=== PATIENT | female | born 1950 | race Caucasian/White ===

== ENCOUNTER 2020-08-20 18:12 | Emergency (ER) | payer MEDICARE, SELFPAY ==
[2020-08-20 18:13] VITALS: BP 104/54; PULSE 93; RESP 18; TEMP 36.7; O2SAT 93; BMI 30.2
[2020-08-20 18:34] VITALS: BP 125/67; PULSE 92; RESP 19; O2SAT 97
--- NOTE | 2020-08-20 18:34 | CTR_ITS ---
PROCEDURE INFORMATION: Exam: CT Head Without Contrast Exam date and time: 08/20/2020 6:34 PM Age: 69 years old Clinical indication: Pain; Dizziness and visual disturbance; Headache not specified; Additional info: Dizziness/blurred vision/frontal FUENTES x yesterday TECHNIQUE: Imaging protocol: Computed tomography of the head without contrast. Radiation optimization: All CT scans at this facility use at least one of these dose optimization techniques: automated exposure control; mA and/or kV adjustment per patient size (includes targeted exams where dose is matched to clinical indication); or iterative reconstruction. COMPARISON: No relevant prior studies available. RADIATION DOSE METRICS: Total DLP (mGy-cm): 775.27 FINDINGS: Brain: There is moderate cerebral atrophy. Negative for intracranial hemorrhage. No intracranial mass. Negative for acute brain ischemia. Medrano matter and white matter interfaces are preserved. Focal low-attenuation area posteromedial left parietal lobe most likely representing gliosis in the subcortical white matter. No mass effect on the brain. Focal area of encephalomalacia of the inferomedial left cerebellum. Cerebral ventricles: No ventriculomegaly. Paranasal sinuses: Visualized sinuses are unremarkable. No fluid levels. Mastoid air cells: Visualized mastoid air cells are well aerated. Vasculature: Intracranial atherosclerosis. Bones/joints: Unremarkable. No acute fracture. Soft tissues: Unremarkable. CT/CT head wo con* [id number] IMPRESSION: 1. Negative for acute intracranial abnormality. 2. Suspect areas of gliosis related to prior ischemia in the left parietal lobe and the left cerebellum. Radiation Dose CTDIVOL = (mGy): DLP = 775.27 (mGy-cm)
--- NOTE | 2020-08-20 18:34 | XRR_ITS ---
PROCEDURE INFORMATION: Exam: XR Chest Exam date and time: 08/20/2020 6:34 PM Age: 69 years old Clinical indication: Pain; Chest pressure; Additional info: Cp TECHNIQUE: Imaging protocol: XR of the chest. Views: 1 view. COMPARISON: No relevant prior studies available. FINDINGS: Lungs: Unremarkable. No consolidation. Pleural spaces: Unremarkable. No pleural effusion. No pneumothorax. Heart/Mediastinum: Unremarkable. No cardiomegaly. Bones/joints: Unremarkable. XR/XR chest 1V portable [id number] IMPRESSION: No acute findings.
--- NOTE | 2020-08-20 18:35 | ECG_ITS ---
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 Measurements Intervals [place] Rate: 90 P: 66 SC: 172 QRS: -36 QRSD: 74 T: 55 QT: 370 QTc: 454 Interpretive Statements SINUS RHYTHM MARKED LEFT AXIS DEVIATION [QRS AXIS < -30] No previous ECG available for comparison Electronically Signed On 08-21-2020 22:28:08 CDT by Destinee Blanco M.D. [id number]
[2020-08-20 19:30] VITALS: BP 144/70; PULSE 86; RESP 17; O2SAT 98
[2020-08-20 19:39] LABS: Basophils # 0.1 10^3/uL (0.0-0.1); Basophils % 0.3 %; Eosinophils # 0.1 10^3/uL (0.0-0.8); Eosinophils % 0.7 %; Hematocrit 45.6 % (37.0-47.0); Hemoglobin 14.7 g/dL (11.5-15.3); Lymphocytes % 11.8 %; Mean Corpuscular HGB Conc 32.2 g/dL (30.0-36.0); Mean Corpuscular Hemoglobin 29.6 pg (28.0-34.0); Mean Corpuscular Volume 91.8 fL (81-99); Mean Platelet Volume 9.5 fL (7.4-10.4); Neutrophils # 13.44 10^3/uL (1.8-7.7); Neutrophils % 80.8 %; Nucleated Red Blood Cells % 0 %; Platelet Count 167 10^3/cmm (130-400); Red Blood Count 4.97 10^6/uL (4.1-5.3); Red Cell Distribution Width 13.1 % (12.1-15.1); White Blood Count 16.6 10^3/uL (4.0-10.0)
[2020-08-20 19:49] LABS: Add Urine Microscopic? NO; Charge for UA Resulting for Rev
[2020-08-20 19:57] LABS: Troponin(5th) Baseline 11 ng/L (0-10)
[2020-08-20 19:59] LABS: Alanine Aminotransferase 16 U/L (0-33); Albumin Level 4.1 g/dL (3.5-5.2); Alkaline Phosphatase 131 IU/L (35-105); Anion Gap 16.8 (5-19); Aspartate Amino Transferase 19 U/L (0-32); Blood Urea Nitrogen 19 mg/dL (8-23); C Reactive Protein 4.7 mg/L (0.0-4.9); Calcium 8.6 mg/dL (8.5-10.5); Carbon Dioxide 23 mmol/L (22-29); Chloride 104 mmol/L (98-107); Creatinine Clr Calc Pharmacy 67.8443; Globulin 2.2 g/dL (1.3-4.6); Glomerular Filtration Rate 71.1 mL/min (90-130); Glucose 322 mg/dL (65-115); Lipase 30 U/L (13-60); Osmolality Calculated 303 mOsm/kg (285-295); Potassium 4.8 mmol/L (3.5-5.1); Sodium 139 mmol/L (136-145); Total Bilirubin 0.4 mg/dL (0.15-1.2); Total Protein 6.3 g/dL (6.6-8.7)
[2020-08-20 20:02] LABS: Bilirubin Urine Neg (Negative); Blood Urine Neg (Negative); Glucose Urine UA 4+ (Normal); Ketones Urine Negative (Negative); Leukocyte Esterase Urine Negative (Negative); Nitrate Urine Negative (Negative); Protein Urine Neg (Negative); Specific Gravity, Urine 1.005 (1.005-1.030); Urine Appearance Clear (CLEAR); Urine Color Yellow (Yellow); Urobilinogen Urine Norm (Negative); pH Urine 5 (5-7)
[2020-08-20 20:07] VITALS: BP 125/51; PULSE 82; RESP 18; O2SAT 98
--- NOTE | 2020-08-20 20:35 | ECG_ITS ---
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 Measurements Intervals [place] Rate: 84 P: 66 HI: 180 QRS: -18 QRSD: 77 T: 51 QT: 376 QTc: 444 Interpretive Statements SINUS RHYTHM Compared to ECG 08/20/2020 18:41:47 Left-axis deviation no longer present Electronically Signed On 08-21-2020 22:37:08 CDT by Destinee Blanco M.D. [id number]
--- NOTE | 2020-08-20 20:51 | ED_ITS ---
HPI - Nausea/Vomiting/Diarrhea General: Chief complaint: Nausea/Vomiting/Diarrhea Stated complaint: SHOULDER/ NECK AND BILATERAL JAW PAIN Time Seen by Provider: 08/20/20 18:22 Source: patient Mode of arrival: EMS Limitations: no limitations History of Present Illness: HPI Narrative: Patient is a 69-year-old female with a history of diabetes mellitus hypertension, who presents to the emergency department with multiple complaints. She states that her symptoms started yesterday after she made some hamburgers. She had several episodes of nausea, vomiting, diarrhea. She states that her symptoms continued today and she noticed that when she looked up she had dizziness. She also has some neck pain on either side. Initially today she felt much better and went out with her to have lunch just to walk around, however after lunch she started to feel bad again. Because of all these she had an ambulance called and she was brought to the emergency department to be evaluated. She has no prior cardiac history. MD elicited complaint: nausea, vomiting and diarrhea Onset (ago): day(s) (1) Description of vomiting: food contents Description of diarrhea: watery Associated nausea: Yes Associated abdominal pain: No Exacerbating factors: none Relieving factors: none Context: possible food poisoning Associated symtoms: Reports dizziness and nausea; Denies altered mental status, anxiety, bloating, change in vision, chest pain, cough, diaphoresis, decreased urine output, dysuria, epistaxis, fatigue, fecal incontinence, fevers/chills, headache(s), anorexia, malaise, myalgias, numbness, palpitations, rash, short of breath, syncope, tenesmus, tinnitus or weakness Review of Systems General: Reports: 10 or more systems reviewed and unremarkable except in HPI and below Const: Denies: fatigue, malaise or diaphoresis Eyes: Denies: change in vision ENMT: Denies: tinnitus or epistaxis Card: Denies: chest pain, palpitations or syncope GI: Reports: nausea; Denies: bloating or fecal incontinence : Denies: dysuria Neuro: Reports: dizziness; Denies: headache(s) Psych: Denies: anxiety Physical Exam Const: COMMON NORMALS: no acute distress, average body habitus, patient oriented x3, no limitations, healthy appearing, alert and well nourished EXAM LIMITATIONS: no altered mental status HENMT: COMMON NORMALS: normocephalic, atraumatic and moist oral mucous membranes HEAD & SCALP: normocephalic and atraumatic Neck/C-Spine: COMMON NORMALS: full ROM, supple, no meningeal signs, no JVD and No carotid bruits Chest: COMMONS NORMALS: normal inspection of the chest and normal palpation of entire chest wall Resp: COMMON NORMALS: normal respiratory effort, No retractions, No use of accessory muscles, clear to auscultation bilaterally and percussion normal AUSCULTATION: clear to auscultation bilaterally PERCUSSION: percussion normal Cardio: COMMON NORMALS: no JVD, regular rate, regular rhythm, S1 normal heart sound present, S2 normal heart sound present, No gallops present (Cardio), No clicks present (Cardio), No murmurs present (Cardio), No rub (Cardio) and Peripheral pulses 2+ throughout RATE: regular rate RHYTHM: regular rhythm HEART SOUNDS: S1 normal heart sound present and S2 normal heart sound present PERIPHERAL PULSES: Peripheral pulses 2+ throughout GI: COMMON NORMALS: Normal to inspection, nondistended, normoactive bowel sounds present, Soft to palpation, non-tender, No hepatosplenomegaly present, no masses and no bruits PALPATION: Yes Soft to palpation and Yes No hepatosplenomegaly present Extremity: COMMON NORMALS: normal to inspection, full ROM, capillary refill normal, no calf tenderness and no pedal edema Neuro: COMMON NORMALS: patient oriented x3 SENSORIUM/ORIENTATION: Yes alert MENINGEAL SIGNS: Yes no meningeal signs Skin: COMMON NORMALS: no rashes or lesions noted, no wounds, turgor normal, no jaundice, no petechiae and no mottling GENERAL SKIN EXAM: no rashes or lesions noted and turgor normal Course Reevaluation(s): Reevaluation #1: I discussed her initial lab and imaging findings with her. Explained that so far nothing acute other than mild leukocytosis. I explained that because of her symptoms are like to do a CT of her head and neck to rule out a vertebral artery dissection, however the patient would like to be discharged home and to have the test done outpatient. I explained to her that if she is indeed having a vertebral artery dissection she may have a devastating outcome if it is not diagnosed early, she voiced understanding, and explained that she understands the risks but still wants to be discharged home. 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 I will therefore discharge her home with no new orders. Time: 20:51 Vital Signs: Vital signs: Vital Signs Temperature 98.0 F 08/20/20 18:13 Pulse Rate 87 08/20/20 21:16 Respiratory Rate 18 08/20/20 21:16 Blood Pressure 120/81 08/20/20 21:16 Pulse Oximetry 96 08/20/20 21:16 MDM - Nausea/Vomiting/Diarrhea MDM Narrative: Medical decision making narrative: 69-year-old female patient who presents to the emergency department with nonspecific symptoms of nausea, vomiting, and diarrhea, neck pain and dizziness when she looks up. Initial work-up in the emergency department shows mild leukocytosis, mildly elevated baseline troponin. Head CT was negative. Because of the dizziness on looking up I was concerned about vertebral artery dissection and wanted to order a CTA of her head and neck, however the patient declined wanted to be discharged home. She would have the test done outpatient. Advised her that if it is a vertebral artery dissection it is something that will need to be addressed urgently. She understood the risk involved. Going home without the tests including significant disability or . She still wanted to be discharged. She is therefore discharged home. Medical Records: Attestation: I reviewed the patient's medical records. Lab Data: Attestation: I reviewed the patient's lab results. Labs: Lab Results 08/20/20 08/20/20 08/20/20 Range/Units 19:34 19:36 19:36 WBC 16.6 H (4.0-10.0) 10^3/ uL RBC 4.97 (4.1-5.3) 10^6/u L Hgb 14.7 (11.5-15.3) g/dL Hct 45.6 (37.0-47.0) % MCV 91.8 (81-99) fL MCH 29.6 (28.0-34.0) pg MCHC 32.2 (30.0-36.0) g/dL RDW 13.1 (12.1-15.1) % Plt Count 167 (130-400) 10^3/c mm MPV 9.5 (7.4-10.4) fL Neut % (Auto) 80.8 % Lymph % (Auto) 11.8 % Merrick % (Auto) 6.0 % Eos % (Auto) 0.7 % Baso % (Auto) 0.3 % Neut # (Auto) 13.44 H (1.8-7.7) 10^3/u L Lymph # (Auto) 2.0 (0.8-4.8) 10^3/u L Merrick # (Auto) 1.0 H (0.2-0.9) 10^3/u L Eos # (Auto) 0.1 (0.0-0.8) 10^3/u L Baso # (Auto) 0.1 (0.0-0.1) 10^3/u L Nucleated RBC % (a uto) 0 % Nucleated RBCs # 0.0 /100WBC Sodium 139 (136-145) mmol/L Potassium 4.8 (3.5-5.1) mmol/L Chloride 104 (98-107) mmol/L Carbon Dioxide 23 (22-29) mmol/L Anion Gap 16.8 (5-19) BUN 19 (8-23) mg/dL Creatinine 0.8 (0.5-0.9) mg/dL GFR Calculation 71.1 L (90-130) mL/min Glucose 322 H (65-115) mg/dL Calculated Osmolal ity 303 H (285-295) mOsm/k g Calcium 8.6 (8.5-10.5) mg/dL Total Bilirubin 0.4 (0.15-1.2) mg/dL AST 19 (0-32) U/L ALT 16 (0-33) U/L Alkaline Phosphata se 131 H (35-105) IU/L Troponin T Baselin e (0-10) ng/L C-Reactive Protein 4.7 (0.0-4.9) mg/L Total Protein 6.3 L (6.6-8.7) g/dL Albumin 4.1 (3.5-5.2) g/dL Globulin 2.2 (1.3-4.6) g/dL Lipase 30 (13-60) U/L Urine Color Yellow (Yellow) Urine Appearance Clear (CLEAR) Urine pH 5 (5-7) Ur Specific Gravit y 1.005 (1.005-1.030) Urine Protein Neg (Negative) Urine Glucose (UA) 4+ H (Normal) Urine Ketones Negative (Negative) Urine Blood Neg (Negative) Urine Nitrate Negative (Negative) Urine Bilirubin Neg (Negative) Urine Urobilinogen Norm (Negative) mg/dL Ur Leukocyte Ruma ase Negative (Negative) 08/20/20 Range/Units 19:36 WBC (4.0-10.0) 10^3/ uL RBC (4.1-5.3) 10^6/u L Hgb (11.5-15.3) g/dL Hct (37.0-47.0) % MCV (81-99) fL MCH (28.0-34.0) pg MCHC (30.0-36.0) g/dL RDW (12.1-15.1) % Plt Count (130-400) 10^3/c mm MPV (7.4-10.4) fL Neut % (Auto) % Lymph % (Auto) % Merrick % (Auto) % Eos % (Auto) % Baso % (Auto) % Neut # (Auto) (1.8-7.7) 10^3/u L Lymph # (Auto) (0.8-4.8) 10^3/u L Merrick # (Auto) (0.2-0.9) 10^3/u L Eos # (Auto) (0.0-0.8) 10^3/u L Baso # (Auto) (0.0-0.1) 10^3/u L Nucleated RBC % (a uto) % Nucleated RBCs # /100WBC Sodium (136-145) mmol/L Potassium (3.5-5.1) mmol/L Chloride (98-107) mmol/L Carbon Dioxide (22-29) mmol/L Anion Gap (5-19) BUN (8-23) mg/dL Creatinine (0.5-0.9) mg/dL GFR Calculation (90-130) mL/min Glucose (65-115) mg/dL Calculated Osmolal ity (285-295) mOsm/k g Calcium (8.5-10.5) mg/dL Total Bilirubin (0.15-1.2) mg/dL AST (0-32) U/L ALT (0-33) U/L Alkaline Phosphata se (35-105) IU/L Troponin T Baselin e 11 H (0-10) ng/L C-Reactive Protein (0.0-4.9) mg/L Total Protein (6.6-8.7) g/dL Albumin (3.5-5.2) g/dL Globulin (1.3-4.6) g/dL Lipase (13-60) U/L Urine Color (Yellow) Urine Appearance (CLEAR) Urine pH (5-7) Ur Specific Gravit y (1.005-1.030) Urine Protein (Negative) Urine Glucose (UA) (Normal) Urine Ketones (Negative) Urine Blood (Negative) Urine Nitrate (Negative) Urine Bilirubin (Negative) Urine Urobilinogen (Negative) mg/dL Ur Leukocyte Ruma ase (Negative) Imaging Data^: CXR: Attestation: I personally reviewed and interpreted this imaging study as follows: Radiologist's impression: [address] [address]LBsm ReportSigned Patient: Katie Kang #: [id number]: 1950cct#:[id number]/Sex: 69 / FADM Date: 08/20/20Loc: ERRoom/Bed:Attending Dr: Ordering Provider/Ordering MD: Jorge Moya [place], [facility] of Service: 08/20/20 Procedure(s): XR chest 1V portable [id number] Accession Number(s): [id number] Report Number: [id number] PROCEDURE INFORMATION: Exam: XR Chest Exam date and time: 08/20/2020 6:34 PM Age: 69 years old Clinical indication: Pain; Chest pressure; Additional info: Cp TECHNIQUE: Imaging protocol: XR of the chest. Views: 1 view. COMPARISON: No relevant prior studies available. FINDINGS: Lungs: Unremarkable. No consolidation. Pleural spaces: Unremarkable. No pleural effusion. No pneumothorax. Heart/Mediastinum: Unremarkable. No cardiomegaly. Bones/joints: Unremarkable. XR/XR chest 1V portable [id number] IMPRESSION: No acute findings. Dictated By:Bernard Kemp By:Bernard Kemp Date/Time:08/20/202002DD/ 00 CT Head: Attestation: I personally reviewed and interpreted this imaging study as follows: Radiologist's impression: [facility] [place], [place] [address]SR Scan ReportSigned Patient: Katie Kang #: [id number]: 1950cct#:[id number]/Sex: 69 / FADM Date: 08/20/20Loc: ERRoom/Bed:Attending Dr: Ordering Provider/Ordering MD: Jorge Moya MD, [facility] Date of Service: 08/20/20 Procedure(s): CT head wo con* [id number] Accession Number(s): [id number] Report Number: [id number] PROCEDURE INFORMATION: Exam: CT Head Without Contrast Exam date and time: 08/20/2020 6:34 PM Age: 69 years old Clinical indication: Pain; Dizziness and visual disturbance; Headache not specified; Additional info: Dizziness/blurred vision/frontal FUENTES x yesterday TECHNIQUE: Imaging protocol: Computed tomography of the head without contrast. Radiation optimization: All CT scans at this facility use at least one of these dose optimization techniques: automated exposure control; mA and/or kV adjustment per patient size (includes targeted exams where dose is matched to clinical indication); or iterative reconstruction. COMPARISON: No relevant prior studies available. RADIATION DOSE METRICS: Total DLP (mGy-cm): 775.27 FINDINGS: Brain: There is moderate cerebral atrophy. Negative for intracranial hemorrhage. No intracranial mass. Negative for acute brain ischemia. Medrano matter and white matter interfaces are preserved. Focal low-attenuation area posteromedial left parietal lobe most likely representing gliosis in the subcortical white matter. No mass effect on the brain. Focal area of encephalomalacia of the inferomedial left cerebellum. Cerebral ventricles: No ventriculomegaly. Paranasal sinuses: Visualized sinuses are unremarkable. No fluid levels. Mastoid air cells: Visualized mastoid air cells are well aerated. Vasculature: Intracranial atherosclerosis. Bones/joints: Unremarkable. No acute fracture. Soft tissues: Unremarkable. CT/CT head wo con* [id number] IMPRESSION: 1. Negative for acute intracranial abnormality. 2. Suspect areas of gliosis related to prior ischemia in the left parietal lobe and the left cerebellum. Radiation Dose CTDIVOL = (mGy): DLP = 775.27 (mGy-cm) Dictated By:Bernard Kemp By:Bernard Kemp Date/Time:08/20/202001DD/ 00 EKG Data^: EKG 1: Attestation: I personally reviewed and interpreted this EKG as follows: EKG interpretation date: 08/20/20 EKG interpretation time: 18:41 Prior EKG tracings: not available for review Interpretation: Sinus rhythm. Heart rate [address] changes. EKG 2: Attestation: I personally reviewed and interpreted this EKG as follows: EKG interpretation date: 08/20/20 EKG interpretation time: 20:46 Prior EKG tracings: available for review Interpretation: Sinus rhythm. Heart rate [address] changes. No significant change from earlier Discharge Plan Discharge Patient Disposition: Home Clinical Impression: Dizziness after extension of neck, Gastroenteritis Condition: Stable Prescriptions: Continued lamotrigine 200 mg tablet 200 mg PO DAILY@2100 RF: 0 trazodone 50 mg tablet 50 mg PO DAILY@2100 RF: 0 Novolog U-100 Insulin aspart 100 unit/mL Solution See Rx Instructions .ROUTE .COMPLEX RF: 0 lisinopril 10 mg tablet 10 mg PO DAILY@0800 RF: 0 gabapentin 300 mg capsule See Rx Instructions .ROUTE .COMPLEX RF: 0 Levemir U-100 Insulin 100 unit/mL Solution 44 unit SUBCUT BEDTIME@2100 RF: 0 Xarelto 20 mg tablet 20 mg PO DAILY@0800 RF: 0 Jardiance 10 mg tablet 10 mg PO DAILY@0800 RF: 0 Aspir-81 81 mg PO DAILY@0800 RF: 0 Discharge Orders: Discharge ED (Routine); Ordered 08/20/20 Ordered By: Jorge Moya Discharge Diet: Usual diet Discharge Activity: Limit activity as instructed Patient Instructions: Gastroenteritis (ED), Dizziness (ED) Activity Restrictions/Additional Instructions: Return for any new or worsening symptoms. 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 The test that I wanted you to have is called a CT angiogram of your head and neck to rule out a vertebral artery disease. It is important to seek medical attention if your symptoms get any worse. Continue your home medications. Coding Level of Care Code ED [employer] Worker for [facility] Johanna
[2020-08-20 21:16] VITALS: BP 120/81; PULSE 87; RESP 18; O2SAT 96
== END 2020-08-20 21:10 | disposition home or self-care (01) ==
PROVIDERS: Emergency Provider Family Medicine
DX: K52.9 Noninfective gastroenteritis and colitis, unspecified (principal); R42 Dizziness and giddiness; Z79.899 Other long term (current) drug therapy; Z51.81 Encounter for therapeutic drug level monitoring
CPT/HCPCS: 70450; 71045; 80053; 81003; 83690; 84484; 85025; 86140; 93005; 99284